=== PATIENT | female | born 1965 | race Caucasian/White ===

== ENCOUNTER 2020-11-27 13:21 | Outpatient (AMBR) | payer MEDICARE, MEDICAID, SELFPAY ==
--- NOTE | 2020-11-13 13:50 | PT.ODAYNRPT ---
PT Outpatient Daily Note Date of Service: 11/13/20 OP Daily Note Visit Reasons: right shoulder pain Outpatient Physical Therapy Treatment Date: 11/13/20 Subjective: Pt's shoulder was popping a lot yesterday when she was trying to move it around. Pt still has a lot of pain. Objective: Please see flow chart for list of ther ex performed Assessment: pain with all exercises; post heat help decrease overall shoulder pain Plan: Continue with PT Length of Time (minutes) of Treatment: 30 Minutes Office Procedures PT Procedures PT Date of Service: 11/13/20 Therapeutic Exercise 30 minutes: Yes
--- NOTE | 2020-11-16 11:43 | PT.ODAYNRPT ---
PT Outpatient Daily Note Date of Service: 11/16/20 OP Daily Note Visit Reasons: right shoulder pain Outpatient Physical Therapy Treatment Date: 11/16/20 Subjective: Pt's shoulder still hurts. Pt mention that she was sore after last treatment session Objective: Please see flow chart for list of ther ex performed Assessment: tolerate exercises with minimal pain Plan: Continue with PT Length of Time (minutes) of Treatment: 30 Minutes Office Procedures PT Procedures PT Date of Service: 11/16/20 Therapeutic Exercise 30 minutes: Yes PT Procedures PT Date of Service: 11/13/20 Therapeutic Exercise 30 minutes: Yes
--- NOTE | 2020-11-21 13:40 | PT.ODAYNRPT ---
PT Outpatient Daily Note Date of Service: 11/21/20 OP Daily Note Visit Reasons: right shoulder pain Outpatient Physical Therapy Treatment Date: 11/21/20 Subjective: Pt's shoulder about the same and continues to have pain under the armpit. Pt stated that all movement still increase pain Objective: Please see flow chart for list of ther ex performed Assessment: tolerate exercises with minimal pain Plan: Continue with PT Length of Time (minutes) of Treatment: 30 Minutes Office Procedures PT Procedures PT Date of Service: 11/16/20 Therapeutic Exercise 30 minutes: Yes PT Procedures PT Date of Service: 11/13/20 Therapeutic Exercise 30 minutes: Yes PT Procedures PT Date of Service: 11/21/20 Therapeutic Exercise 30 minutes: Yes
--- NOTE | 2020-11-23 10:53 | PT.ODAYNRPT ---
PT Outpatient Daily Note Date of Service: 11/23/20 OP Daily Note Visit Reasons: right shoulder pain Outpatient Physical Therapy Treatment Date: 11/23/20 Subjective: Pt mention that her shoulder is the same and continues to hurt. Objective: Please see flow chart for list of ther ex performed Assessment: tolerate exercises with minimal pain; no change in overall pain after therapy session Plan: Continue with PT Length of Time (minutes) of Treatment: 30 Minutes Office Procedures PT Procedures PT Date of Service: 11/16/20 Therapeutic Exercise 30 minutes: Yes PT Procedures PT Date of Service: 11/13/20 Therapeutic Exercise 30 minutes: Yes PT Procedures PT Date of Service: 11/21/20 Therapeutic Exercise 30 minutes: Yes PT Procedures PT Date of Service: 11/23/20 Therapeutic Exercise 30 minutes: Yes
--- NOTE | 2020-11-27 16:05 | PT.ODS1RPT ---
PT OP Progress/Discharge Note Date of Service: 11/27/20 Progress Note/DC Note Progress Note/Discharge Note: DC Note Patient Information Visit Reasons: right shoulder pain Medical Diagnosis: Right Shoulder Pain Treatment Dx #1: Right Shoulder Mobility Deficits Treatment Dx #2: Right Shoulder Weakness Service Continue Service or Discharge: Discharge Discharge Date: 11/27/20 Status Subjective: Pt mention that her shoulder pain (7/10) is about the same since starting physical therapy. Pt continues to have limitation with overhead motions, lifting, chores, self care, cooking, and recreational activities. At this time Pt will like to be release from care and follow up with provider Objective: Right Shoulder AROM Flexion: 30 deg Abduction: 40 deg ER and IR: unable Right Shoulder PROM (pain with all plane) Flexion: 120 deg Abduction: 90 deg External Rotation: 70 deg Internal Rotation: 20 deg Right Shoulder MMTs: grossly 3/5 Right Scapula MMTs: grossly 3/5 Assessment: Pt continues to have shoulder pain with limited ROM leading to difficulty with ADLs, chores, lifting, and overall function. Pt will no longer benefit from physical therapy due to minimal progression towards goals. Pt was not instructed on HEP during her last visit due to exercises increase shoulder pain. Pt has pending appt with provider at the end of month and will follow up, thank you for your referrals. Plan: D/C home with HEP and follow up with provider Office Procedures PT Procedures PT Date of Service: 11/16/20 Therapeutic Exercise 30 minutes: Yes PT Procedures PT Date of Service: 11/13/20 Therapeutic Exercise 30 minutes: Yes PT Procedures PT Date of Service: 11/21/20 Therapeutic Exercise 30 minutes: Yes PT Procedures PT Date of Service: 11/23/20 Therapeutic Exercise 30 minutes: Yes PT Procedures PT Date of Service: 11/27/20 Therapeutic Exercise 30 minutes: Yes
== END 2020-12-12 23:59 | disposition home or self-care (01) ==
PROVIDERS: PCP Physician Assistant; Referring Provider Physician Assistant; Visit Provider Physician Assistant
DX: M25.511 Pain in right shoulder (principal); R53.1 Weakness
CPT/HCPCS: 97110

== ENCOUNTER → 2024-09-12 | Outpatient (CLI) | payer OTHER, MEDICAID, SELFPAY ==
--- NOTE | 2024-09-12 09:00 | XR_ITS ---
Examination: Screening digital mammography, bilateral Computer aided detection 3-D breast Tomosynthesis, bilateral Date and time of exam: September 12, 2024 0903 hours Compared to mammograms dating to January 29, 2016 Indication: Screening Technique: Nonmagnified MLO, CC views of the breasts to been obtained, reconstructed from 3-D Tomosynthesis images. R2 computer aided detection program utilized for evaluation of suspicious masses and/or abnormal calcifications. 3-D Tomosynthesis images obtained. Findings: Scattered areas of fibroglandular density. Benign calcifications. No interval suspicious masses Impression: BI-RADS category II: Benign Findings. Recommend 1 year follow-up mammogram.
== END | disposition home or self-care (01) ==
PROVIDERS: PCP Physician Assistant; Referring Provider Physician Assistant; Visit Provider Physician Assistant
DX: Z12.31 Encounter for screening mammogram for malignant neoplasm of breast (principal); R92.323 Mammographic fibroglandular density, bilateral breasts; R92.1 Mammographic calcification found on diagnostic imaging of breast
CPT/HCPCS: 77063; 77067

== ENCOUNTER → 2025-04-12 | Outpatient (CLI) | payer OTHER, MEDICAID, SELFPAY ==
--- NOTE | 2025-04-12 08:37 | XR_ITS ---
Examination: Bilateral AP wrists single view Right and left oblique, right and left lateral wrist 4 views TECHNIQUE: Bilateral AP wrist single view Right lateral wrist left lateral wrist 2 views Right oblique wrist (oblique wrist 2 views total 5 views Date and time: April 12, 2025 0844 hours INDICATIONS: Bilateral wrist pain years FINDINGS: Bilateral mild to moderate osteoarthritis first carpometacarpal joints No fractures No dislocations No erosive arthritis IMPRESSION: Bilateral mild to moderate osteoarthritis first carpometacarpal joints
--- NOTE | 2025-04-12 08:37 | XR_ITS ---
Examination:: Bilateral AP hands single view, right and left oblique, right and left lateral hands 4 views TECHNIQUE: Bilateral AP hands single view, right and left oblique, right and left lateral hands 4 views, total 5 views Date and time of exam: April 12, 2025 0844 hours INDICATIONS: Bilateral hand pain years Findings: Flexion deformities involving the proximal interphalangeal joints fifth digits bilaterally with moderate osteoarthritis involving the proximal interphalangeal joints fifth digits Osteoarthritis also involving the distal interphalangeal joints second through fifth digits and interphalangeal joints first digits bilaterally No erosive arthritis No fractures IMPRESSION: Osteoarthritis as above
== END | disposition home or self-care (01) ==
PROVIDERS: PCP Physician Assistant; Referring Provider Nurse Practitioner Gerontology; Visit Provider Nurse Practitioner Gerontology
DX: M19.042 Primary osteoarthritis, left hand (principal); M19.041 Primary osteoarthritis, right hand; M18.0 Bilateral primary osteoarthritis of first carpometacarpal joints
CPT/HCPCS: 73110; 73130

== ENCOUNTER 2025-06-02 10:44 | Inpatient (IN) | payer MEDICARE, MEDICAID, SELFPAY ==
[2025-06-02] VITALS (9 sets, daily range): BP systolic 128–153; BP diastolic 71–84; PULSE 86–115; RESP 15–97; TEMP 36.6–37.2; O2SAT 95–97; BMI 21.9; BMI 28.8
--- NOTE | 2025-06-02 11:24 | XR_ITS ---
Examination: CT abdomen and pelvis without contrast. Coronal 3-D reconstructions. Sagittal 2-D reconstructions. Date and time of exam:June 02, 2025, 11:57 AM, comparison November 20, 2021 INDICATIONS: Right-sided flank pain beginning 3 days ago CTDI: vol (mGy): 7.57 DLP: (mGycm): 411 Technique: Axial images of the abdomen have been obtained, 3 mm slice thickness Intravenous contrast material has not been administered. Low dose protocols were performed. One or more of the following dose reduction techniques were used; automated exposure control, adjustment of the mA and/or KV according to patient size, use of iterative reconstruction technique. Findings: 15 mm pulmonary mass left lower lobe 15 mm pulmonary mass right lower lobe Small pericardial effusion No visualized liver or splenic lesion No gallstones No pancreatic or adrenal mass Moderate left renal parenchymal scar formation 4 cm left peripelvic cyst 17 mm lower pole right renal cyst No renal or ureteral calculi, no hydronephrosis No pericecal inflammatory change No bowel obstruction Mild small bowel ileus No diverticulitis Atrophic uterus Contracted urinary bladder Prominent osteopenia Prominent thoracolumbar levoscoliosis with orthopedic stabilization rods Moderate bilateral hip osteoarthritis IMPRESSION: Pulmonary masses in the lower lung zones, consider CT chest without intravenous contrast follow-up Moderate left renal parenchymal scar formation Bilateral renal cysts No renal or ureteral calculi, no hydronephrosis Normal appendix No bowel obstruction Mild small bowel ileus, clinical correlation advised, if early small bowel obstruction is a clinical consideration, recommend 3 way abdominal series follow-up
--- NOTE | 2025-06-02 11:24 | XR_ITS ---
Examination: Ribs, right, with PA chest, 4 views Technique: Chest PA, RIBS AP, RPO, LPO, 4 views Exam date and time: June 02, 2025 11:12 AM INDICATIONS: Fever upper back pain rib pain 3 days Findings: Soft nodular opacities throughout right lung and mild opacity left base consistent with pneumonia Normal heart size Prominent thoracic dextroscoliosis with rotary support rods Old appearing fracture right fifth rib anteriorly No acute rib fractures noted IMPRESSION: Soft nodular opacities throughout the right lung and mild opacity left base most consistent with pneumonia Follow-up chest imaging recommended to document clearing
--- NOTE | 2025-06-02 11:26 | PD.EDRME ---
Rapid Medical Screening Exam RME Arrival date/time: 06/02/25 10:44 60-year-old female with a history of type 2 diabetes, hypertension presents to the emergency room with a chief complaint of right sided flank and rib pain x 3 days I have greeted and performed a focused initial assessment of this patient. A comprehensive ED assessment and evaluation of the patient, analysis of all test results, and completion of the medical decision making process will be conducted by additional ED providers. Chief Complaint: Back Pain/Injury Time Seen by Provider: 06/02/25 11:02 Vital signs: Vital Signs Temperature 98.9 F 06/02/25 11:13 Pulse Rate 115 H 06/02/25 11:13 Respiratory Rate 18 06/02/25 11:13 Blood Pressure 132/71 H 06/02/25 11:13 Pulse Oximetry (%) 95 06/02/25 11:13 Oxygen Delivery Method Room Air 06/02/25 11:13 Vital signs reviewed by provider: Yes
[2025-06-02] MEDS: KETOROLAC INJ 60 MG/2 ML VIAL 30 MG IM (11:31)
--- NOTE | 2025-06-02 12:06 | EKG_ITS ---
[facility] Test Date: 2025-06-02 Pat Name: CLARISSA DOMINGUEZ Department: Room: - Gender: Female Car [employer]: : [id number] Requested By: Wilbur Burgess Order Number: [id number] Reading MD: Wilbur Burgess Measurements Intervals [place] Rate: 108 P: 59 [place]: 164 QRS: -50 QRSD: 100 T: 60 QT: 339 QTc: 456 Interpretive Statements SINUS TACHYCARDIA LEFT ANTERIOR FASCICULAR BLOCK [QRS AXIS <= -45, QR IN I, RS IN II] VOLTAGE CRITERIA FOR LVH [MEETS CRITERIA IN ONE OF: R(aVL), S(V1), R(V5), R(V5/V6)+S(V1)] POSSIBLE ANTERIOR MYOCARDIAL INFARCTION , OF INDETERMINATE AGE [30 ms Q WAVE IN V3/V4, OR R < 0.2 mV IN V4] Compared to ECG 07/14/2020 16:29:07 Left anterior fascicular block now present Myocardial infarct finding now present Sinus rhythm no longer present Left-axis deviation no longer present /store/S0/[id number]/[id number].pdf
[2025-06-02 12:14] LABS: Collection Type, Urine Clean Catch
[2025-06-02 12:29] LABS: Bacteria,Urine Rare; Bilirubin,Urine Negative (Negative); Blood,Urine Negative (Negative); Clarity,Urine Clear (Clear/Hazy); Color,Urine Lt-Yellow (Lt Yel-Yel); Glucose, Urine 4+ (Negative); Ketones,Urine 2+ (Negative); Leukocyte Esterase,Urine Negative (Negative); Nitrite,Urine Negative (Negative); PH,Urine 6.0 (5.0-7.0); Protein,Urine Negative (Neg - Trace); RBC,Urine 12 /hpf (0-3); Specific Gravity,Urine 1.036 (1.001-1.035); Squamous Epithelial Cell,Urine 1 /hpf (0-5); Urobilinogen,Urine Negative mg/dL (0.0-1.0); WBC,Urine 4 /hpf (0-5)
[2025-06-02] MEDS: SODIUM CHLORIDE 0.9% 1000 ML 1,000 ML 999 ML IV (12:32)
--- NOTE | 2025-06-02 12:47 | PD.EDBACK ---
ED Back Injury Pain RME/HPI General Chief Complaint: Back Pain/Injury Stated Complaint: RIGHT FLANK PAIN X4 DAYS Time Seen by Provider: 06/02/25 11:02 Arrival date/time: 06/02/25 10:44 Limitations: no limitations RME / HPI RME / HPI Narrative: 06/02/25 10:44 60-year-old female with a history of type 2 diabetes, hypertension presents to the emergency room with a chief complaint of right sided flank and rib pain x 3 days I have greeted and performed a focused initial assessment of this patient. A comprehensive ED assessment and evaluation of the patient, analysis of all test results, and completion of the medical decision making process will be conducted by additional ED providers. DR. LAI MAIN ED EVALUATION: 60 year old female with history of hypertension and diabetes presents to the ED for evaluation of worsening right back/flank pain with no radiation that began 4 days ago. Described as aching in sensation, rating 9/10 in severity. States she has attempted to rest with no improvement. Additionally complains of dysuria, no urinary frequency/urgency or hematuria. Denies any history of similar pain or kidney stones. Denies fevers, chills, chest pain, cough, shortness of breath, abdominal pain, n/v/d, constipation, or changes in appetite. Related Data Home Medications ?Medication ?Instructions ?Recorded ?Confirmed glimepiride 2 mg tablet 1 tab PO QDAY ##30 06/25/17 12/06/21 lisinopril 20 mg tablet 20 mg PO QDAY #0 tabs 06/25/17 12/06/21 lorazepam 0.5 mg tablet 0.5 mg PO BID #0 tabs 06/25/17 12/06/21 metformin 1,000 mg tablet 1,000 mg PO BID ##60 06/25/17 12/06/21 ranitidine HCl 150 mg tablet 1 tab PO BID ##60 06/25/17 12/06/21 hydrocodone 10 mg-acetaminophen 1 tab PO Q6H PRN Pain, Moderate 01/31/18 12/06/21 325 mg tablet ([place]) warfarin 6 mg tablet 6 mg PO QDAY 01/31/18 12/06/21 gabapentin 100 mg capsule 2 tab PO HS 12/15/18 12/06/21 Previous Rx's ?Medication ?Instructions ?Recorded doxycycline hyclate 100 mg capsule 100 mg PO BID #20 caps 11/29/23 Allergies Allergy/AdvReac Type Severity Reaction Status Date / Time No Known Allergies Allergy Verified 06/02/25 10:46 Review of Systems Review of Systems Systems Reviewed: All systems reviewed, normal except as documented Past Medical History Past Medical History NEUROLOGIC: Positive Neurological Disorders and Migraine CARDIAC: Positive Cardiac Disorders, Hypercholesterolemia and Hypertension RESPIRATORY: Positive Pulmonary Embolism and Sleep Apnea GENITOURINARY: Positive Genitourinary Disorders and Kidney Stones REPRODUCTIVE: Positive Previous Pregnancies MUSCULOSKELETAL: Positive Musculoskeletal Disorders and Scoliosis ENDOCRINE: Positive Endocrine Disorders and Diabetes Mellitus Type 1 PSYCHO/SOCIAL: Positive Depression and Anxiety OTHER HISTORY: Positive Hospitalization Family History FAMILY HISTORY: Positive Family Cardiac Disorders Surgical History SURGICAL: Positive Tubal Ligation and Section Social History SMOKING STATUS: Never smoker SUBSTANCE USE: does not use ED Exam General Limitations: Present no limitations General appearance: Present alert, anxious and other (appears to be in pain ) Head Head exam: Present atraumatic, normocephalic and normal inspection Eye Eye exam: Present normal appearance, PERRL and EOMI ENT ENT exam: Present normal exam, normal oropharynx and mucous membranes moist Neck Neck exam: Present normal inspection, full ROM and trachea midline Chest Chest inspection: Present normal inspection and symmetric chest wall rise Respiratory Respiratory exam: Present normal lung sounds bilaterally Cardiovascular Cardiovascular exam: Present regular rate, normal rhythm and normal heart sounds Abdominal Exam Abdominal exam: Present soft and normal bowel sounds Extremities Exam Extremities exam: Present normal inspection and full ROM Back Exam Back exam: Present full ROM and other (tenderness on the right lateral costal area around T9-T12 area. ) Neurological Exam Neurological exam: Present alert, oriented X3 and CN II-XII intact Psychiatric Psychiatric exam: Present normal affect and normal mood Skin Skin exam: Present warm, dry, intact and normal color Course Quality Measures none Orders Category Date Time Status [employer] Specialist NOW Care 06/02/25 12:06 Completed Continuous Pulse Oximetry NOW Care 06/02/25 12:06 Completed EKG (ED ONLY) *Do not use* NOW Care 06/02/25 12:06 Completed Insert IV NOW Care 06/02/25 12:[address] abdomen pelvis wo con Stat Exams 06/02/25 11:[address] chest wo con Stat Exams 06/02/25 12:46 Completed EKG (ED Only) Stat Exams 06/02/25 12:06 Draft XR ribs RT min 3V w CXR1V Stat Exams 06/02/25 11:24 Completed CBC Stat Lab 06/02/25 12:40 Completed CMP [Comprehensive Metabolic Panel] Stat Lab 06/02/25 12:40 Completed UA [Urinalysis] Stat Lab 06/02/25 12:09 Completed Ketorolac Inj [Toradol Inj] Med 06/02/25 11:25 Discontinued 30 mg IM X1 ONE Morphine* Inj Med 06/02/25 12:47 Discontinued 2 mg IVP X1 ONE Ondansetron Inj [Zofran Inj] Med 06/02/25 12:47 Discontinued 4 mg IVP X1 ONE Sodium Chloride 0.9% 1000 ml [Ns] 1,000 ml Med 06/02/25 12:06 Discontinued IV 999 mls/hr Vital Signs Vital signs: Vital Signs Temperature 98.9 F 06/02/25 11:13 Pulse Rate 115 H 06/02/25 11:13 Respiratory Rate 18 06/02/25 11:13 Blood Pressure 132/71 H 06/02/25 11:13 Pulse Oximetry (%) 95 06/02/25 11:13 Oxygen Delivery Method Room Air 06/02/25 11:13 Pulse ox is 95% on room air which is adequate. Back Pain / Injury MDM Narrative MDM Narrative:: Sisi Huntley am scribing for and in the presence of Dr. Lai. Patient data External records reviewed:: [facility] previous records (I reviewed ED visit on 11/29/2023 ) Clinical information provided by:: patient Social determinants that could affect healthcare access:: none Patient has the following chronic illnesses:: HTN, DM How is presenting disease/condition affected by chronic disease/condition?: uneffected by Evaluation data The following diagnostics were reviewed and interpreted by me:: lab results, radiology exam(s) and EKG tracing(s) (EKG @ 12:19h. Sinus tachycardia, rate 108, LAFB, LVH, poor R-wave progression) Lab and/or radiology exams considered but not ordered:: None Interpretation Summary: Ordering Physician: Lauro Waters Date of Service: 06/02/25 Procedure(s): CT abdomen pelvis wo con Accession Number(s): [id number] cc: Lauro Waters; Eyal James MD~ Examination: CT abdomen and pelvis without contrast. Coronal 3-D reconstructions. Sagittal 2-D reconstructions. Date and time of exam:June 02, 2025, 11:57 AM, comparison November 20, 2021 INDICATIONS: Right-sided flank pain beginning 3 days ago CTDI: vol (mGy): 7.57 DLP: (mGycm): 411 Technique: Axial images of the abdomen have been obtained, 3 mm slice thickness Intravenous contrast material has not been administered. Low dose protocols were performed. One or more of the following dose reduction techniques were used; automated exposure control, adjustment of the mA and/or KV according to patient size, use of iterative reconstruction technique. Findings: 15 mm pulmonary mass left lower lobe 15 mm pulmonary mass right lower lobe Small pericardial effusion No visualized liver or splenic lesion No gallstones No pancreatic or adrenal mass Moderate left renal parenchymal scar formation 4 cm left peripelvic cyst 17 mm lower pole right renal cyst No renal or ureteral calculi, no hydronephrosis No pericecal inflammatory change No bowel obstruction Mild small bowel ileus No diverticulitis Atrophic uterus Contracted urinary bladder Prominent osteopenia Prominent thoracolumbar levoscoliosis with orthopedic stabilization rods Moderate bilateral hip osteoarthritis IMPRESSION: Pulmonary masses in the lower lung zones, consider CT chest without intravenous contrast follow-up Moderate left renal parenchymal scar formation Bilateral renal cysts No renal or ureteral calculi, no hydronephrosis Normal appendix No bowel obstruction Mild small bowel ileus, clinical correlation advised, if early small bowel obstruction is a clinical consideration, recommend 3 way abdominal series follow-up Dictated By: Eyal James MD Signed By: <Electronically signed by Eyal James MD in OV> 06/02/25 1228 Ordering Physician: Lauro Waters Date of Service: 06/02/25 Procedure(s): XR ribs RT min 3V w CXR1V Accession Number(s): [id number] cc: Lauro Waters; Eyal James MD~ Examination: Ribs, right, with PA chest, 4 views Technique: Chest PA, RIBS AP, RPO, LPO, 4 views Exam date and time: June 02, 2025 11:12 AM INDICATIONS: Fever upper back pain rib pain 3 days Findings: Soft nodular opacities throughout right lung and mild opacity left base consistent with pneumonia Normal heart size Prominent thoracic dextroscoliosis with rotary support rods Old appearing fracture right fifth rib anteriorly No acute rib fractures noted IMPRESSION: Soft nodular opacities throughout the right lung and mild opacity left base most consistent with pneumonia Follow-up chest imaging recommended to document clearing Dictated By: Eyal James MD Signed By: <Electronically signed by Eyal James MD in OV> 06/02/25 1141 Ordering Physician: Wilbur Lai MD Date of Service: 06/02/25 Procedure(s): CT chest wo con Accession Number(s): [id number] cc: Wilbur Lai MD; Eyal James MD; Fadumo Baumann PA-C~ Examination: CT chest, without intravenous contrast. Sagittal and coronal 2-D reconstructions. Exam date and time: June 02, 2025, 1255 hours, comparison October 07, 2011 INDICATIONS: Tenderness in the right rib cage today, chest examination today nodular opacities throughout the right lung and at the left base consistent with pneumonia CTDI:vol (mGy) 12.2 DLP: (mGycm) 440 Technique: Multiple 3.0 mm axial sections of the chest to been obtained. Bone and lung density settings are obtained. Sagittal and coronal 2-D reconstructions have been obtained. Low dose protocols were performed. One or more of the following dose reduction techniques were used; automated exposure control, adjustment of the mA and/or KV according to patient size, use of iterative reconstruction technique. Findings: Small left thyroid calcification subcentimeter No thoracic aortic aneurysmal dilatation Pulmonary artery segments are not enlarged. Minimal pericardial effusion 4 mm in thickness anteriorly No paratracheal tracheobronchial or bronchopulmonary adenopathy Soft nodular opacities throughout both lungs, multiple ranging in size from 4 to 16 mm in the right lung and at 2 13 mm in the left lung No visualized liver or splenic lesion No gallstones No pancreatic or adrenal mass IMPRESSION: Multiple soft pulmonary nodules throughout both lungs, differential would include infectious processes including fungal disease, pulmonary nodular metastatic disease not excluded Recommend follow-up chest imaging post antibiotic therapy Dictated By: Eyal James MD Signed By: <Electronically signed by Eyal James MD in OV> 06/02/25 1338 Medications / Prescriptions Medications or Prescriptions considered but not ordered:: None Medication administrations:: Medication Administration History Acetaminophen (Acetaminophen 325 Mg Tablet) 650 mg PO Q6H PRN PRN Reason: Fever >101.5 Stop: 07/02/25 15:27 Hydrocodone Bitart/Acetaminophen (Hydrocodone/Apap 5/325 Tablet) 1 tab PO Q4HR PRN PRN Reason: PAIN SCALE 4-6 (Moderate Stop: 06/07/25 15:27 Dextrose (Dextrose 50%-Water Inj 50 Ml Syringe) 25 ml IV Q15MIN PRN PRN Reason: BG 50-70 responsive npo pt Stop: 07/02/25 15:52 Dextrose (Dextrose 50%-Water Inj 50 Ml Syringe) 50 ml IV Q15MIN PRN PRN Reason: BG <50 OR BG <70 & pt unresponsive Stop: 07/02/25 15:52 Erythromycin (Erythromycin Op Oint 0.5% 1 Gm Packet) 0 gm LEFT EYE QID JOHNATHON Stop: 07/02/25 15:59 Last Admin: 06/02/25 16:48 Dose: 1 gm Documented By: EF Co-signed By: VG Glucagon (Glucagon Inj 1 Mg Vial) 1 mg IM Q15MIN PRN PRN Reason: BG <70, and no IV access Ceftriaxone Sodium/Dextrose (Rocephin/D5w 2gm) 2 gm in 50 mls @ 100 mls/hr IV QDAY@1400 [facility] Stop: 06/10/25 13:59 Lactated Ringer's (Lactated Ringers) 1,000 mls @ 85 mls/hr IV .[id number] [facility] Stop: 06/04/25 04:48 Insulin Human Lispro (Insulin Lispro (Admelog) 1 Unit/0.01 Ml Unit) 0 unit SC [facility]; Protocol Stop: 07/02/25 16:59 Morphine Sulfate (Morphine Sulf Inj 4 Mg/Ml Vial) 2 mg IVP Q4HR PRN PRN Reason: PAIN SCALE 7-10 (Severe Stop: 06/07/25 15:27 Last Admin: 06/02/25 16:48 Dose: 2 mg Documented By: EF Discontinued Medications Sodium Chloride (Ns) 1,000 mls @ 999 mls/hr IV .Q1H1M ONE Stop: 06/02/25 13:06 Last Infusion: 06/02/25 13:58 Dose: Infused Documented By: Admin: 06/02/25 12:32 Dose: 999 mls/hr Documented By: EF Ceftriaxone Sodium 2 gm/ (Sodium Chloride) 50 mls @ 100 mls/hr IV X1 ONE Stop: 06/02/25 16:14 Last Admin: 06/02/25 16:48 Dose: 100 mls/hr Documented By: EF Insulin Human Regular (Insulin Hum Regular 1 Unit/0.01 Ml (Per Unit)) 10 unit IV X1 ONE Stop: 06/02/25 15:29 Insulin Human Regular (Insulin Hum Regular 1 Unit/0.01 Ml (Per Unit)) 4 unit IV X1 ONE Stop: 06/02/25 16:32 Last Admin: 06/02/25 16:49 Dose: 4 unit Documented By: EF Co-signed By: VG Ketorolac Tromethamine (Ketorolac Inj 60 Mg/2 Ml Vial) 30 mg IM X1 ONE Stop: 06/02/25 11:26 Last Admin: 06/02/25 11:31 Dose: 30 mg Documented By: OA Morphine Sulfate (Morphine Sulf Inj 4 Mg/Ml Vial) 2 mg IVP X1 ONE Stop: 06/02/25 12:48 Last Admin: 06/02/25 13:08 Dose: 2 mg Documented By: EF Ondansetron HCl (Ondansetron Inj 2 Mg/Ml Inj 2 Ml) 4 mg IVP X1 ONE; Protocol Stop: 06/02/25 12:48 Last Admin: 06/02/25 13:07 Dose: 4 mg Documented By: EF See above Consultations Consultation(s) initiated? (list below): Yes Consultation #1 (Physician, Specialty, Details): I spoke with hospitalist team A regarding admission. Diagnosis Differential diagnosis back pain/injury: lumbar radiculopathy, renal colic, pyelonephritis and thoracic back pain Most likely diagnosis given after review of the tests above:: Acute pulmonary infiltrates Right flank pain Admission Indicated Admission indicated?: indicated Admission Request Was there a request for admission?: Yes Admission Attestation Admission request attestation: Discussed case with [] from Hospitalist service regarding admission. Discussed patients ED course, exam findings, labs, and radiology results. The Hospitalist [agrees,declines] to accept the patient for admission. Disposition Plan Disposition Plan: Admit Discharge Plan Plan Patient Disposition: Admit Acute Care w/in Hospital Problem List Clinical Impression: Pulmonary infiltrate, Right flank pain
[2025-06-02 12:48] LABS: Basophils # (Auto) 0.0 Thou/mm3 (0.0-0.2); Basophils % (Auto) 0 % (0-2.5); Eosinophils # (Auto) 0.0 Thou/mm3 (0.0-0.5); Eosinophils % (Auto) 0 % (0-10); Hematocrit 36.0 % (36.0-46.0); Hemoglobin 12.1 g/dL (12.0-16.0); Immature Granulocytes Auto 0.05 Thou/mm3 (0.00-0.00); Lymphocytes # (Auto) 1.1 Thou/mm3 (1.0-4.8); Lymphocytes % (Auto) 10 % (10-50); Mean Corpuscular HGB Conc 33.6 g/dl (31.0-37.0); Mean Corpuscular Hemoglobin 29.4 pg (25.0-35.0); Mean Corpuscular Volume 87 fL (80-100); Monocytes # (Auto) 0.6 Thou/mm3 (0.0-0.8); Monocytes % (Auto) 6 % (0-12); Neutrophils # (Auto) 9.4 Thou/mm3 (1.8-7.7); Neutrophils % (Auto) 84 % (37-80); Nucleated Red Blood Cell # 0.00 Thou/mm3 (0.00-0.00); Nucleated Red Blood Cell % 0 /100 WBC (0); Platelet Count 228 Thou/mm3 (140-440); RDW Standard Deviation 39.1 fL (36.4-46.3); Red Blood Count 4.12 Miln/mm3 (4.00-5.20); White Blood Count 11.2 Thou/mm3 (3.6-11.0)
[2025-06-02] MEDS: ONDANSETRON INJ 2 MG/ML INJ 2 ML 4 MG IVP (13:07)
[2025-06-02] MEDS: MORPHINE SULF INJ 4 MG/ML VIAL 2 MG IVP ×2 (13:08→16:48)
[2025-06-02 13:14] LABS: Alanine Aminotransferase < 7 U/L (10-49); Albumin, Serum 4.2 gm/dL (3.4-4.8); Albumin/Globulin Ratio 1.6 (1.2-2.2); Alkaline Phosphatase 70 U/L (46-116); Anion Gap 13 (7-16); Aspartate Amino Transferase 10 U/L (0-34); BUN/Creatinine Ratio 17 Ratio (12-20); Bilirubin,Total 0.7 mg/dL (0.3-1.2); Blood Urea Nitrogen 19 mg/dL (9-23); Calcium 9.5 mg/dL (8.3-10.6); Calcium (Corrected) 9.5 mg/dL (8.5-10.1); Carbon Dioxide 17.7 mMol/L (20.0-31.0); Chloride 104 mMol/L (98-107); Creatinine (Component) 1.1 mg/dL (0.6-1.3); Estimated Creatinine Clearance 42.5 mL/min (>60); Globulin 2.7 gm/dL (2.3-3.5); Glucose 358 mg/dL (74-106); Osmolality,Calculated 286 (275-295); Potassium 4.3 mMol/L (3.4-5.1); Sodium 135 mMol/L (136-145); Total Protein 6.9 gm/dL (5.7-8.2); eGFR 57 See Note
--- NOTE | 2025-06-02 15:27 | ESHP_ITS ---
<Statement entered by Ida Lopes MD - 06/08/25 17:38> I reviewed above note and agree with findings and plans. I have also personally examined the patient with medicine team and went over assessment and plan with medical team including chemist internship and resident physician. <Statement entered by Annie Sarmiento MD - 06/03/25 13:52> Ms. Hernandez is a 60-year-old female with past medical history significant for hypertension, type 2 diabetes, peripheral neuropathy, history of unprovoked PE on warfarin, urinary incontinence who came into the ED with 3 days of dysuria and right flank pain. Patient also noted to have left preseptal cellulitis versus stye appearance but also started around 3 days ago. Patient mentioned that she started injectable insulin last week. Patient denies ever having coccidiomycosis. Patient to be admitted for further management of complicated UTI with pyelonephritis. CT abdomen pelvis just showed pulmonary masses in lower lung zones, moderate left renal parenchymal scar formation and bilateral renal cysts, however no renal or urethral calculi or hydronephrosis. Pending urine cultures, on pain scale, on ceftriaxone 2 g, IV fluids, and will start erythromycin topical treatment for her RA, and consider outpatient workup for her pulmonary nodule biopsy. Will continue with warfarin for unprovoked PE and gabapentin for her peripheral neuropathy. I discussed with and supervised the chemist internship physician who took care of this patient. I personally saw and examined the patient and discussed the assessment and plan with the entire medicine team, including my attending Dr. Lopes, I agree with most of the assessment and plan as documented below Annie Sarmiento M.D. PGY-3 Disclaimer: Despite multiple revisions, due to the dictation software being used, the document bellow may not be free of grammatical errors including phonetic/typographic errors. However, this does not deter from our commitment to providing health care in the patient's best interest in mind. Documentation for date of: 06/02/25 HPI History of Present Illness Chief complaint: Flank pain with dysuria and L eye crusting and erythema History of present illness: Ms. Hernandez is a 60 yo woman with a hx of htn, T2DM (not on insulin), peripheral neuropathy, hx of unprovoked PE 4 years ago on warfarin, stress/urge uriniary incontinence (previously followed by Dr. Simpson outpatient) who presents to the ED with 3 days of dysuria and right flank pain. She states that she had dysuria that then progressed to Right flank pain, that is tender to palpation which prompted her to present. she has had poor po intake over the past 2 days due to minimal appetite. she has had urinary frequency in the past (she has 10 children all birthed vaginally). PMH: unprovoked PE 4 years ago, urge/stress incontinence, t2dm, Sugical hx: umbilical hernia repair MEDS: pending med rec ROS endorses subjective fevers, chills, diaphoresis, diarrhea, headaches, L eye pain, R flank pain , anorexia denies, vision changes, constipation, unintentional weight loss, chestpain, shorntess of breath ED course: VSS, Afebrile, tachycardic to 110s, satting well on RA Dx Labs notable wbc 11.2 Glucose 358s, UA notable for 4+ glucose, Ketones 2+, rare bacteria, 4 wbc. Imaging notable for - CXR: Soft nodular opacities throughout the right lung and mild opacity left base most consistent with pneumonia - CTAP Pulmonary masses in the lower lung zones, consider CT chest without intravenous contrast follow-up Moderate left renal parenchymal scar formation Bilateral renal cysts. No renal or ureteral calculi, no hydronephrosis Normal appendix. No bowel obstruction. Mild small bowel ileus, clinical correlation advised, if early small bowel obstruction is a clinical consideration, recommend 3 way abdominal series follow-up Tx Morpheine 2mg IVP x1 1L NS Ceftriaxone 2gm IV x1 zofran erythromycin Review of Systems Review of Systems Narrative Review of Systems: as per hpi Exam Vital Signs Temp Pulse Resp BP Pulse Ox O2 Del Method 98.9 F 104 H 15 128/74 96 Room Air 06/02/25 11:13 06/02/25 12:35 06/02/25 12:05 06/02/25 12:05 06/02/25 12:05 06/02/25 12:05 Narrative Exam GENERAL: mild distress 2/2 pain, AAO x3, laying slightly on the left side. HEENT: Head AT/ NC. Mucous membranes dry. PERRL. , EOMI, L eye with erythematous upper lid NECK: Supple, no lymphadenopathy, no carotid bruits. CARDIOVASCULAR: RRR. Normal S1/S2, No m/r/g. No pitting edema of bilateral LEs. RESPIRATORY: CTAB. No wheezing, rhonchi, crackles. GASTROINTESTINAL: Abdomen soft, non tender no palpable masses. Bowel sounds present R CVA tenderness to light palpation, no suprapubic tenderness. no rebound no guarding . MUSCULOSKELETAL:? No cyanosis or edema, no visible joint swelling. NEUROLOGICAL: CN II-XII grossly intact. No focal deficits. Sensation intact, symmetric. PSYCHIATRIC: Awake and alert, not agitated, normal mood and affect. SKIN: No obvious rashes, no jaundice, normal turgor. Results: Labs 06/02/25 12:40 06/02/25 12:40 Labs: Short CBC 06/02/25 Range/Units 12:40 WBC 11.2 H (3.6-11.0) Thou/mm3 Hgb 12.1 (12.0-16.0) g/dL Hct 36.0 (36.0-46.0) % Plt Count 228 (140-440) Thou/mm3 BMP 06/02/25 12:40 Sodium 135 L Potassium 4.3 Chloride 104 Carbon Dioxide 17.7 L BUN 19 Creatinine 1.1 Glucose 358 H Calcium 9.5 Liver Function 06/02/25 Range/Units 12:40 Total Bilirubin 0.7 (0.3-1.2) mg/dL AST 10 (0-34) U/L ALT < 7 L (10-49) U/L Alkaline Phosphatase 70 (46-116) U/L Albumin 4.2 (3.4-4.8) gm/dL Urine 06/02/25 Range/Units 12:09 Urine Color Lt-Yellow (Lt Yel-Yel) Urine Clarity Clear (Clear/Hazy) Urine pH 6.0 (5.0-7.0) Ur Specific [place] 1.036 H (1.001-1.035) Urine Protein Negative (Neg - Trace) Urine Glucose (UA) 4+ A (Negative) Quality Measures Quality Measures VTE prophylaxis Medications Home Medications and Allergies Home Medications ?Medication ?Instructions ?Recorded ?Confirmed ?Type glimepiride 2 mg tablet 1 tab PO QDAY ##30 06/25/17 12/06/21 History lisinopril 20 mg tablet 20 mg PO QDAY #0 tabs 12/06/21 History lorazepam 0.5 mg tablet 0.5 mg PO BID #0 tabs 12/06/21 History metformin 1,000 mg tablet 1,000 mg PO BID ##60 7 12/06/21 History ranitidine HCl 150 mg tablet 1 tab PO BID ##60 7 12/06/21 History hydrocodone 10 mg-acetaminophen 1 tab PO Q6H PRN Pain, Moderate 01/31/18 12/06/21 History 325 mg tablet ([place]) warfarin 6 mg tablet 6 mg PO QDAY 01/31/18 History gabapentin 100 mg capsule 2 tab PO HS 12/15/18 2 History Allergies Allergy/AdvReac Type Severity Reaction Status Date / Time No Known Allergies Allergy Verified 06/02/25 10:46 Visit Medications Discontinued Medications Sodium Chloride (Ns) 1,000 mls @ 999 mls/hr IV .Q1H1M ONE Stop: 06/02/25 13:06 Last Infusion: 06/02/25 13:58 Dose: Infused Ketorolac Tromethamine (Ketorolac Inj 60 Mg/2 Ml Vial) 30 mg IM X1 ONE Stop: 06/02/25 11:26 Last Admin: 06/02/25 11:31 Dose: 30 mg Morphine Sulfate (Morphine Sulf Inj 4 Mg/Ml Vial) 2 mg IVP X1 ONE Stop: 06/02/25 12:48 Last Admin: 06/02/25 13:08 Dose: 2 mg Ondansetron HCl (Ondansetron Inj 2 Mg/Ml Inj 2 Ml) 4 mg IVP X1 ONE; Protocol Stop: 06/02/25 12:48 Last Admin: 06/02/25 13:07 Dose: 4 mg Assessment & Plan Plan Ms. Hernandez is a 60 yo woman with a hx of htn, T2DM (not on insulin), peripheral neuropathy, hx of unprovoked PE 4 years ago on warfarin, stress/urge uriniary incontinence (previously followed by Dr. Simpson outpatient) who presents to the ED with 3 days of dysuria and right flank pain concerning for pyelonephritis, admitted for complicated UTI with pyelonephritis. Complicated UTI with Pyelonephritis Dx - CTAP with Pulmonary masses in the lower lung zones, consider CT chest without intravenous contrast follow-up Moderate left renal parenchymal scar formation Bilateral renal cysts. No renal or ureteral calculi, no hydronephrosis Normal appendix. - wbc 11 - pending urine cultures Tx - Pain: apap (1-3), [place] ( 4-6 ), morpheine 2 mg IV q4hr prn (7-10) - Ceftriaxone 2 mg IV (06/02- - IV fluids LR 85cc/hr - encourage PO intake L preseptal cellulitis vs stye EOMI, no acute vision changes - CTM - erythromycin topical QID T2DM home meds, metformin 1000 bid, and pt is not taking glimepiride 1 tab - A1c pending - ISS - carb consistent diet Pulmonary nodules CTAP with Pulmonary masses in the lower lung zones, consider CT chest without intravenous contrast follow-up - outpatient pulmonary nodule biopsy Hx of unprovoked PE - warfarin, pending med rec - coagulation panel pending Peripheral Neuropathy - gabapentin 2 tab qhs HTN - lisinopril 20 mg po qd Mixed Urinary Incontinence pt previously followed with Dr. Simpson has had 10 vaginal deliveries - outpatient urology follow up Dispo: on observation, on iv abx, Diet: carb consistent Bowel Reg: senna/docusate prn VTE ppx: on warfarin GI ppx: protonix 40 po qd Code status: FULL Plan discussed with Dr Sarmiento, and Dr. Moses Yanez MD PGY1
[2025-06-02] MEDS: cefTRIAXone 2 GM in SODIUM CHLORIDE 0.9% (Popper) 50 ML IV (16:48)
[2025-06-02] MEDS: Erythromycin Op Oint 0.5% 1 GM PACKET LEFT EYE ×2 (16:48→20:44)
[2025-06-02] MEDS: INSULIN HUM REGULAR 1 UNIT/0.01 ML (PER UNIT) 4 UNIT IV (16:49)
[2025-06-02] MEDS: INSULIN LISPRO (AdmeLOG) 1 UNIT/0.01 ML UNIT SC (17:49)
[2025-06-02] MEDS: RINGERS LACTATED 1000 ML 1,000 ML 85 ML IV (18:04)
[2025-06-02] MEDS: HYDROcodone/APAP 5/325 TABLET 1 TAB PO (23:52)
[2025-06-03] VITALS (13 sets, daily range): BP systolic 113–152; BP diastolic 66–93; PULSE 89–121; RESP 18–202; TEMP 36.4–38.8; O2SAT 92–101; BMI 28.9
[2025-06-03] MEDS: RINGERS LACTATED 1000 ML 1,000 ML 85 ML IV ×2 (04:44→17:30)
[2025-06-03] MEDS: Erythromycin Op Oint 0.5% 1 GM PACKET LEFT EYE ×4 (05:15→20:20)
[2025-06-03 05:39] LABS: Basophils # (Auto) 0.0 Thou/mm3 (0.0-0.2); Basophils % (Auto) 0 % (0-2.5); Eosinophils # (Auto) 0.0 Thou/mm3 (0.0-0.5); Eosinophils % (Auto) 0 % (0-10); Hematocrit 31.8 % (36.0-46.0); Hemoglobin 10.5 g/dL (12.0-16.0); Immature Granulocytes Auto 0.03 Thou/mm3 (0.00-0.00); Lymphocytes # (Auto) 1.2 Thou/mm3 (1.0-4.8); Lymphocytes % (Auto) 14 % (10-50); Mean Corpuscular HGB Conc 33.0 g/dl (31.0-37.0); Mean Corpuscular Hemoglobin 29.3 pg (25.0-35.0); Mean Corpuscular Volume 89 fL (80-100); Monocytes # (Auto) 0.7 Thou/mm3 (0.0-0.8); Monocytes % (Auto) 8 % (0-12); Neutrophils # (Auto) 6.6 Thou/mm3 (1.8-7.7); Neutrophils % (Auto) 77 % (37-80); Nucleated Red Blood Cell # 0.00 Thou/mm3 (0.00-0.00); Nucleated Red Blood Cell % 0 /100 WBC (0); Platelet Count 219 Thou/mm3 (140-440); RDW Standard Deviation 38.8 fL (36.4-46.3); Red Blood Count 3.58 Miln/mm3 (4.00-5.20); White Blood Count 8.6 Thou/mm3 (3.6-11.0)
[2025-06-03 05:41] LABS: INR 1.0 (0.9-1.3); Prothrombin Time 10.9 Seconds (9.0-12.2)
[2025-06-03 06:14] LABS: Alanine Aminotransferase < 7 U/L (10-49); Albumin, Serum 3.5 gm/dL (3.4-4.8); Albumin/Globulin Ratio 1.5 (1.2-2.2); Alkaline Phosphatase 59 U/L (46-116); Anion Gap 11 (7-16); Aspartate Amino Transferase < 8 U/L (0-34); BUN/Creatinine Ratio 19 Ratio (12-20); Bilirubin,Total 0.4 mg/dL (0.3-1.2); Blood Urea Nitrogen 15 mg/dL (9-23); Calcium 8.8 mg/dL (8.3-10.6); Calcium (Corrected) 9.2 mg/dL (8.5-10.1); Carbon Dioxide 21.7 mMol/L (20.0-31.0); Chloride 106 mMol/L (98-107); Creatinine (Component) 0.8 mg/dL (0.6-1.3); Estimated Creatinine Clearance 68.3 mL/min (>60); Globulin 2.4 gm/dL (2.3-3.5); Glucose 183 mg/dL (74-106); Magnesium 2.1 mg/dL (1.6-2.6); Osmolality,Calculated 283 (275-295); Phosphorous 2.5 mg/dL (2.4-5.1); Potassium 4.5 mMol/L (3.4-5.1); Sodium 139 mMol/L (136-145); Total Protein 5.9 gm/dL (5.7-8.2); eGFR > 60 See Note
[2025-06-03 06:25] LABS: Glucose Estimated Average 355 mg/dL (80-131); Hemoglobin A1C > 14.0 % Hgb (4.8-6.0)
--- NOTE | 2025-06-03 07:52 | ESPR_ITS ---
<Statement entered by Ida Lopes MD - 06/08/25 17:39> I reviewed above note and agree with findings and plans. I have also personally examined the patient with medicine team and went over assessment and plan with medical team including compliance intern and resident physician. Documentation for date of: 06/03/25 Subjective Subjective Interval history: Ms. Hernandez is a 60 yo woman with a hx of htn, T2DM (not on insulin), peripheral neuropathy, hx of unprovoked PE 4 years ago on apixaban 2.5mg BID, stress/urge uriniary incontinence (previously followed by Dr. Simpson outpatient) who presents to the ED with 3 days of dysuria and right flank pain concerning for pyelonephritis, admitted for complicated UTI with pyelonephritis. 06/03/2025: Patient seen and examined at bedside she appears to be in moderate distress secondary to pain. She endorses right flank pain. Overnight she had low-grade fever to 100.7 despite being on 2 g ceftriaxone IV. Despite UA being bland high suspicion for UTI and Juan given patient reported symptoms of 3 days of dysuria and is very tender CVA on the right. Patient noted to have pulmonary nodules and today has productive cough, pending cocci serologies. A1c greater than 14 demonstrates poor control of diabetes will start on 10 units long-acting insulin tonight and continue with sliding scale insulin. Per patient reports she has not been taking home short acting insulin secondary to GI upset. For her left eye the orbital versus stye she continues on erythromycin 4 times daily and warm compresses 3 times daily. Patient was noted to have left submental mobile and nontender lymphadenopathy, SPECT that it is secondary to left eye edema however will follow-up with ultrasound head and neck. Exam Vital Signs Temp Pulse Resp BP Pulse Ox O2 Del Method 99.3 F 101 H 19 126/93 H 93 L Room Air 06/03/25 04:00 06/03/25 06:31 06/03/25 06:31 06/03/25 04:00 06/03/25 04:00 06/02/25 17:50 Narrative Exam GENERAL: mild distress 2/2 pain, AAO x3, laying slightly on the left side. HEENT: Head AT/ NC. Mucous membranes dry. PERRL. , EOMI, L eye with erythematous upper lid, crusting and blood noted, NECK: Supple, Left submental lymphadenopathy, mobile and nontender to palpation. , no carotid bruits. CARDIOVASCULAR: sinus tachycardia. Normal S1/S2, No m/r/g. No pitting edema of bilateral LEs. RESPIRATORY: scattered crackles bilaterally, tachypnic. intermittent productive cough, with yellow sputum noted. GASTROINTESTINAL: Abdomen soft, c/o epigastric tenderness no palpable masses. Bowel sounds present R CVA tenderness to light palpation, no suprapubic tenderness. no rebound no guarding . MUSCULOSKELETAL:? No cyanosis or edema, no visible joint swelling. NEUROLOGICAL: CN II-XII grossly intact. No focal deficits. Sensation intact, symmetric. PSYCHIATRIC: Awake and alert, not agitated, normal mood and affect. SKIN: No obvious rashes, no jaundice, normal turgor. Objective Labs 06/03/25 04:55 06/03/25 04:55 Labs: Laboratory Results - last 24 hr 06/02/25 06/02/25 06/03/25 12:09 12:40 04:55 WBC 11.2 H 8.6 RBC 4.12 3.58 L Hgb 12.1 10.5 L Hct 36.0 31.8 L MCV 87 89 MCH 29.4 29.3 MCHC 33.6 33.0 RDW Std Deviation 39.1 38.8 Plt Count 228 219 Neut % (Auto) 84 H 77 Lymph % (Auto) 10 14 [place] % (Auto) 6 8 Eos % (Auto) 0 0 Baso % (Auto) 0 0 Neut # (Auto) 9.4 H 6.6 Lymph # (Auto) 1.1 1.2 [place] # (Auto) 0.6 0.7 Eos # (Auto) 0.0 0.0 Baso # (Auto) 0.0 0.0 Immature Gran # (Auto) 0.05 H 0.03 H Absolute Nucleated RBC 0.00 0.00 Immature Gran % 0 0 Nucleated RBC % 0 0 PT 10.9 INR 1.0 Sodium 135 L 139 Potassium 4.3 4.5 Chloride 104 106 Carbon Dioxide 17.7 L 21.7 Anion Gap 13 11 BUN 19 15 Creatinine 1.1 0.8 Estim Creat Clear Calc 42.5 L 68.3 eGFR 57 L > 60 BUN/Creatinine Ratio 17 19 Glucose [address] Glu mg/dL 355 H Hemoglobin A1c > 14.0 H Calculated Osmolality 286 283 Calcium 9.5 8.8 Corrected Calcium 9.5 9.2 Phosphorus 2.5 Magnesium 2.1 Total Bilirubin 0.7 0.4 AST 10 < 8 ALT < 7 L < 7 L Alkaline Phosphatase 70 59 Total Protein 6.9 5.9 Albumin 4.2 3.5 D Globulin 2.7 2.4 Albumin/Globulin Ratio 1.6 1.5 Ur Collection Type Clean Catch Urine Color Lt-Yellow Urine Clarity Clear Urine pH 6.0 Ur Specific [place] 1.036 H Urine Protein Negative Urine Glucose (UA) 4+ A Urine Ketones 2+ A Urine Blood Negative Urine Nitrite Negative Urine Bilirubin Negative Urine Urobilinogen (Auto) Negative Ur Leukocyte Esterase Negative Urine RBC 12 H Urine WBC 4 Ur Squamous Epith Cells 1 Urine Bacteria Rare Quality Measures Quality Measures VTE prophylaxis Assessment & Plan Assessment Current Active Medications: Generic Name Dose Route Start Last Admin Trade Name Freq PRN Reason Stop Dose Admin Acetaminophen 650 mg 06/02/25 15:28 Acetaminophen 325 Mg Tablet PO 07/02/25 15:27 Q6H PRN Fever >101.5 Hydrocodone Bitart/Acetaminophen 1 tab 06/02/25 15:28 06/02/25 23:52 Hydrocodone/Apap 5/325 Tablet PO 06/07/25 15:27 1 tab Q4HR PRN Administration PAIN SCALE 4-6 (Moderate Dextrose 25 ml 06/02/25 15:53 Dextrose 50%-Water Inj 50 Ml Syringe IV 07/02/25 15:52 Q15MIN PRN BG 50-70 responsive npo pt Dextrose 50 ml 06/02/25 15:53 Dextrose 50%-Water Inj 50 Ml Syringe IV 07/02/25 15:52 Q15MIN PRN BG <50 OR BG <70 & pt unresponsive Erythromycin 0 gm 06/02/25 16:00 06/03/25 05:15 Erythromycin Op Oint 0.5% 1 Gm Packet LEFT EYE 07/02/25 15:59 1 gm QID JOHNATHON Administration Glucagon 1 mg 06/02/25 15:53 Glucagon Inj 1 Mg Vial IM Q15MIN PRN BG <70, and no IV access Ceftriaxone Sodium/Dextrose 2 gm in 50 mls @ 100 mls/hr 06/03/25 14:00 Rocephin/D5w 2gm IV 06/10/25 13:59 QDAY@1400 JOHNATHON Lactated Ringer's 1,000 mls @ 85 mls/hr 06/02/25 17:31 06/03/25 04:44 Lactated Ringers IV 06/04/25 04:48 85 mls/hr .[id number] JOHNATHON Administration Insulin Human Lispro 0 unit 06/02/25 17:00 06/02/25 17:49 Insulin Lispro (Admelog) 1 Unit/0.01 Ml Unit SC 07/02/25 16:59 1 unit AC JOHNATHON Administration Protocol Morphine Sulfate 2 mg 06/02/25 15:28 06/02/25 16:48 Morphine Sulf Inj 4 Mg/Ml Vial IVP 06/07/25 15:27 2 mg Q4HR PRN Administration PAIN SCALE 7-10 (Severe Pantoprazole Sodium 40 mg 06/03/25 09:00 Pantoprazole 40 Mg Tablet PO 07/03/25 08:59 QDAY JOHNATHON Sennosides 1 tab 06/02/25 17:40 Senna/Docusate Sod 1 Tab Tablet PO 07/02/25 17:39 QDAY PRN CONSTIPATION Protocol Plan Ms. Hernandez is a 60 yo woman with a hx of htn, Insulin dependent t2dm- poorly controlled a1c >15 (recently started on insulin outpatient), peripheral neuropathy, hx of unprovoked PE 4 years ago on warfarin, stress/urge uriniary incontinence (previously followed by Dr. Simpson outpatient) who presents to the ED with 3 days of dysuria and right flank pain concerning for pyelonephritis, admitted for complicated UTI with pyelonephritis and found to have pulmonary nodules, pending cocci serology. Complicated UTI with Pyelonephritis pt had low grade fever overnight and dysuria and severe R flank pain. Dx - CTAP with Pulmonary masses in the lower lung zones, consider CT chest without intravenous contrast follow-up Moderate left renal parenchymal scar formation Bilateral renal cysts. No renal or ureteral calculi, no hydronephrosis Normal appendix. - Leukocytosis downtrending - pending urine cultures Tx - Pain: apap (1-3), [place] ( 4-6 ), morpheine 2 mg IV q4hr prn (7-10) - Ceftriaxone 2 mg IV (06/02- - IV fluids LR 85cc/hr - encourage PO intake Productive cough c/f CAP Pulmonary nodules CTAP with Pulmonary masses in the lower lung zones, consider CT chest without intravenous contrast follow-up pt has new productive cough with yellow sputum, despite ct chest without lobar pneumonia findings. - consider adding abx for gram positive coverage for possible pna if pt spikes fevers while on Ceftriaxone. - pending cocci serology - consider outpatient biopsy T2DM - poorly controlled home meds, 25 long acting qd, not taking 5 units short acting with meals 2/2 gi upset, ?Farxiga 10 mg qam. - A1c >14 - ISS - degludec 10U qhs - carb consistent diet L preseptal cellulitis vs stye L submental lymphadenopathy EOMI, no acute vision changes on exam noted to have mobile and non tender lymph node, suspect that it is enlarged 2/2 L eye infection - CTM - erythromycin topical QID - warm compresses TID - pending US head and neck Hx of unprovoked PE - apixaban 2.5 bid - coagulation panel wnl Peripheral Neuropathy - gabapentin 2 tab qhs HTN - lisinopril 20 mg po qd HLD - atorvastatin 40 qhs Mixed Urinary Incontinence pt previously followed with Dr. Simpson has had 10 vaginal deliveries - outpatient urology follow up Dispo: on observation, on iv abx, Diet: carb consistent Bowel Reg: senna/docusate prn VTE ppx: on apixaban 2.5 bid GI ppx: protonix 40 po qd Code status: FULL Plan discussed with Dr Sarmiento, and Dr. Moses Yanez MD PGY1
[2025-06-03] MEDS: INSULIN LISPRO (AdmeLOG) 1 UNIT/0.01 ML UNIT SC ×3 (08:16→17:33)
[2025-06-03] MEDS: PANTOPRAZOLE 40 MG TABLET PO (08:16)
[2025-06-03] MEDS: MORPHINE SULF INJ 4 MG/ML VIAL 2 MG IVP (09:13)
[2025-06-03] MEDS: GABAPENTIN 100 MG CAPSULE 300 MG PO (10:08)
--- NOTE | 2025-06-03 11:24 | PC.SS ---
Tester Wafer Substrate (JUNG) Apoorva met with the patient at the bedside to complete the initial assessment and discuss the discharge plan. Per the chart review, the patient presented to the emergency department with c/o flank pain with dysuria, and left eye crusting and erythema. SW met with the patient at the bedside. SW introduced self, role, and the reason for the consult. Patient agreed to engage in the assessment. Patient is alert and oriented to person, place, time, and situation. Patient is Maura Hernandez, 60 y/o, , Mongolian-speaking female residing at [address] [place] [address]. Patient named her son, Vincenzo Sanchez, , as her surrogate medical decision maker. Patient reports being independent and able to attend to her ADLs. Patient reports having a C-Pap at home. Patient is receiving SSI benefits. Patient's PCP is Dr. Fadumo Baumann. The patient's discharge plan is home, and the family will provide transportation. Per HUNTER Bae, the patient is A/O X4; on IV abx and pain control Surrogate medical decision maker: Son, Vincenzo Sanchez, Discharge plan: Home
--- NOTE | 2025-06-03 12:01 | XR_ITS ---
Examination: Ultrasound soft tissue neck Technique: Grayscale sonographic images soft tissue neck Indications: Palpable lymphadenopathy and submental region today. Date and time: June 03, 2025, 1250 hrs. Findings: 16 x 7 x 13 mm lymph node in the upper left neck Impression: 16 x 7 x 13 mm lymph node in the upper soft tissue left neck, clinical correlation advised
[2025-06-03 12:33] LABS: Amylase 27 U/L (30-118)
[2025-06-03] MEDS: cefTRIAXone/D5w 2gm 2 GM/50 ML BAG IV (13:35)
[2025-06-03 13:46] LABS: Cocci Serology, IgM Negative (Negative)
[2025-06-03] MEDS: HYDROcodone/APAP 5/325 TABLET 1 TAB PO (15:59)
[2025-06-03] MEDS: ACETAMINOPHEN 325 MG TABLET 650 MG PO (17:29)
[2025-06-03] MEDS: INSULIN DEGLUDEC 5 UNIT/0.05 ML (PER 5 UNITS) 10 UNIT SC (20:18)
[2025-06-03] MEDS: APIXABAN 2.5 MG TABLET PO (20:20)
[2025-06-03] MEDS: PIPER/TAZO INJ 3.375 GM in SODIUM CHLORIDE 0.9% (POP) 100 ML IV (21:45)
[2025-06-04] VITALS (7 sets, daily range): BP systolic 115–145; BP diastolic 68–87; PULSE 71–108; RESP 16–97; TEMP 36.3–36.7; O2SAT 93–95
[2025-06-04] MEDS: Erythromycin Op Oint 0.5% 1 GM PACKET LEFT EYE ×4 (05:12→21:28)
[2025-06-04] MEDS: PIPER/TAZO INJ 3.375 GM in SODIUM CHLORIDE 0.9% (POP) 100 ML IV ×3 (05:13→21:31)
[2025-06-04 05:31] LABS: Basophils # (Auto) 0.0 Thou/mm3 (0.0-0.2); Basophils % (Auto) 0 % (0-2.5); Eosinophils # (Auto) 0.0 Thou/mm3 (0.0-0.5); Eosinophils % (Auto) 0 % (0-10); Hematocrit 30.6 % (36.0-46.0); Hemoglobin 10.3 g/dL (12.0-16.0); Immature Granulocytes Auto 0.05 Thou/mm3 (0.00-0.00); Lymphocytes # (Auto) 1.1 Thou/mm3 (1.0-4.8); Lymphocytes % (Auto) 12 % (10-50); Mean Corpuscular HGB Conc 33.7 g/dl (31.0-37.0); Mean Corpuscular Hemoglobin 29.4 pg (25.0-35.0); Mean Corpuscular Volume 87 fL (80-100); Monocytes # (Auto) 0.8 Thou/mm3 (0.0-0.8); Monocytes % (Auto) 9 % (0-12); Neutrophils # (Auto) 7.1 Thou/mm3 (1.8-7.7); Neutrophils % (Auto) 78 % (37-80); Nucleated Red Blood Cell # 0.00 Thou/mm3 (0.00-0.00); Nucleated Red Blood Cell % 0 /100 WBC (0); Platelet Count 230 Thou/mm3 (140-440); RDW Standard Deviation 38.2 fL (36.4-46.3); Red Blood Count 3.50 Miln/mm3 (4.00-5.20); White Blood Count 9.0 Thou/mm3 (3.6-11.0)
[2025-06-04 06:21] LABS: Alanine Aminotransferase < 7 U/L (10-49); Albumin, Serum 3.5 gm/dL (3.4-4.8); Albumin/Globulin Ratio 1.5 (1.2-2.2); Alkaline Phosphatase 56 U/L (46-116); Anion Gap 10 (7-16); Aspartate Amino Transferase < 8 U/L (0-34); BUN/Creatinine Ratio 16 Ratio (12-20); Bilirubin,Total 0.4 mg/dL (0.3-1.2); Blood Urea Nitrogen 11 mg/dL (9-23); Calcium 8.9 mg/dL (8.3-10.6); Calcium (Corrected) 9.3 mg/dL (8.5-10.1); Carbon Dioxide 22.7 mMol/L (20.0-31.0); Chloride 105 mMol/L (98-107); Creatinine (Component) 0.7 mg/dL (0.6-1.3); Estimated Creatinine Clearance 76.2 mL/min (>60); Globulin 2.4 gm/dL (2.3-3.5); Glucose 186 mg/dL (74-106); Magnesium 1.7 mg/dL (1.6-2.6); Osmolality,Calculated 280 (275-295); Phosphorous 1.7 mg/dL (2.4-5.1); Potassium 4.2 mMol/L (3.4-5.1); Sodium 138 mMol/L (136-145); Total Protein 5.9 gm/dL (5.7-8.2); eGFR > 60 See Note
[2025-06-04] MEDS: INSULIN LISPRO (AdmeLOG) 1 UNIT/0.01 ML UNIT SC ×3 (07:34→16:48)
--- NOTE | 2025-06-04 07:35 | ESPR_ITS ---
<Statement entered by Ida Lopes MD - 06/08/25 17:39> I reviewed above note and agree with findings and plans. I have also personally examined the patient with medicine team and went over assessment and plan with medical team including data analysis intern and resident physician. <Statement entered by Tootie Patel MD - 06/04/25 16:23> Patient examined at bedside. Overnight patient had fever and antibiotic regimen changed from ceftriaxone to IV Zosyn for treatment of complicated UTI versus pyelonephritis and CAP. Will continue to monitor vitals and patient's symptoms. Denies worsening dysuria, resolving CVA tenderness. States that she is feeling better and able to tolerate some food. Urine cultures on admission were negative. Improvement noted of stye on left eyelid with decreased swelling. U/s of neck showed 16 x 7 x 13 mm lymph node in the upper soft tissue left neck. Likely due to lymph drainage from eye infection. Uptitrate long actining insulin to optimize blood sugars and continue SSI. The patient's management plan was discussed with my attending physician Dr. Lopes. Tootie Patel, PGY-2 Documentation for date of: 06/04/25 Subjective Subjective Interval history: Ms. Hernandez is a 60 yo woman with a hx of htn, T2DM (not on insulin), peripheral neuropathy, hx of unprovoked PE 4 years ago on apixaban 2.5mg BID, stress/urge uriniary incontinence (previously followed by Dr. Simpson outpatient) who presents to the ED with 3 days of dysuria and right flank pain concerning for pyelonephritis, admitted for complicated UTI with pyelonephritis. 06/03/2025: Patient seen and examined at bedside she appears to be in moderate distress secondary to pain. She endorses right flank pain. Overnight she had low-grade fever to 100.7 despite being on 2 g ceftriaxone IV. Despite UA being bland high suspicion for UTI and Juan given patient reported symptoms of 3 days of dysuria and is very tender CVA on the right. Patient noted to have pulmonary nodules and today has productive cough, pending cocci serologies. A1c greater than 14 demonstrates poor control of diabetes will start on 10 units long-acting insulin tonight and continue with sliding scale insulin. Per patient reports she has not been taking home short acting insulin secondary to GI upset. For her left eye the orbital versus stye she continues on erythromycin 4 times daily and warm compresses 3 times daily. Patient was noted to have left submental mobile and nontender lymphadenopathy, SPECT that it is secondary to left eye edema however will follow-up with ultrasound head and neck. 06/04/2025: patient seen and examined at bedside. she appears much more comfortable, her eye cellulitis vs stye is much improved with markedly less swelling of the lid noted and less crusting and drainage. US neck showed lymphnode of the L neck. likely correllates to L eye inflammation and infection resolving with topical erythromycin qid and warm compresses TID. Patient overnight spiked fever while on ceftrixone 2 grams, so abx were changed to zosyn q8hr. pt reports marked improvement in her R flank pain, and diminished dysuria. Ucx with now growth to date and blood cultures ngtd @ 24 hours. Increased her degludec from 10 to 13 Units qhs. Exam Vital Signs Temp Pulse Resp BP Pulse Ox O2 Del Method 98.0 F 108 H 18 134/72 H 95 Room Air 06/04/25 04:00 06/04/25 04:00 06/04/25 04:00 06/04/25 04:00 06/04/25 04:00 06/04/25 04:00 Narrative Exam GENERAL: mild distress 2/2 pain, AAO x3, laying slightly on the left side. HEENT: Head AT/ NC. Mucous membranes moist. PERRL. , EOMI, L eye much improved, decreased errythema and swelling NECK: Supple, Left submental lymphadenopathy decresed in size, mobile and nontender to palpation., no carotid bruits. CARDIOVASCULAR: sinus tachycardia. Normal S1/S2, No m/r/g. No pitting edema of bilateral LEs. RESPIRATORY: Lungs CTAB intermittent productive cough, with yellow sputum noted. GASTROINTESTINAL: Abdomen soft, c/o epigastric tenderness no palpable masses. Bowel sounds present R CVA is Nontender to palpation, no suprapubic tenderness. no rebound no guarding . MUSCULOSKELETAL:? No cyanosis or edema, no visible joint swelling. NEUROLOGICAL: CN II-XII grossly intact. No focal deficits. Sensation intact, symmetric. PSYCHIATRIC: Awake and alert, not agitated, normal mood and affect. SKIN: No obvious rashes, no jaundice, normal turgor. Objective Labs 06/04/25 04:51 06/04/25 04:51 Labs: Laboratory Results - last 24 hr 06/03/25 06/04/25 10:57 04:51 WBC 9.0 RBC 3.50 L Hgb 10.3 L Hct 30.6 L MCV 87 MCH 29.4 MCHC 33.7 RDW Std Deviation 38.2 Plt Count 230 Neut % (Auto) 78 Lymph % (Auto) 12 [place] % (Auto) 9 Eos % (Auto) 0 Baso % (Auto) 0 Neut # (Auto) 7.1 Lymph # (Auto) 1.1 [place] # (Auto) 0.8 Eos # (Auto) 0.0 Baso # (Auto) 0.0 Immature Gran # (Auto) 0.05 H Absolute Nucleated RBC 0.00 Immature Gran % 1 H Nucleated RBC % 0 Sodium 138 Potassium 4.2 Chloride 105 Carbon Dioxide 22.7 Anion Gap 10 BUN 11 Creatinine 0.7 Estim Creat Clear Calc 76.2 eGFR > 60 BUN/Creatinine Ratio 16 Glucose 186 H Calculated Osmolality 280 Calcium 8.9 Corrected Calcium 9.3 Phosphorus 1.7 L Magnesium 1.7 Total Bilirubin 0.4 AST < 8 ALT < 7 L Alkaline Phosphatase 56 Total Protein 5.9 Albumin 3.5 Globulin 2.4 Albumin/Globulin Ratio 1.5 Amylase 27 L Coccidioides IgM Ab Negative Quality Measures Quality Measures VTE prophylaxis Assessment & Plan Assessment Current Active Medications: Generic Name Dose Route Start Last Admin Trade Name Freq PRN Reason Stop Dose Admin Acetaminophen 650 mg 06/02/25 15:28 06/03/25 17:29 Acetaminophen 325 Mg Tablet PO 07/02/25 15:27 650 mg Q6H PRN Administration Fever >101.5 Hydrocodone Bitart/Acetaminophen 1 tab 06/02/25 15:28 06/03/25 15:59 Hydrocodone/Apap 5/325 Tablet PO 06/07/25 15:27 1 tab Q4HR PRN Administration PAIN SCALE 4-6 (Moderate Apixaban 2.5 mg 06/03/25 21:00 06/03/25 20:20 Apixaban 2.5 Mg Tablet PO 06/24/25 20:59 2.5 mg BID JOHNATHON Administration Atorvastatin Calcium 40 mg 06/04/25 21:00 Atorvastatin Calcium 20 Mg Tablet PO 07/04/25 20:59 HS JOHNATHON Dextrose 25 ml 06/02/25 15:53 Dextrose 50%-Water Inj 50 Ml Syringe IV 07/02/25 15:52 Q15MIN PRN BG 50-70 responsive npo pt Dextrose 50 ml 06/02/25 15:53 Dextrose 50%-Water Inj 50 Ml Syringe IV 07/02/25 15:52 Q15MIN PRN BG <50 OR BG <70 & pt unresponsive Erythromycin 0 gm 06/02/25 16:00 06/04/25 05:12 Erythromycin Op Oint 0.5% 1 Gm Packet LEFT EYE 07/02/25 15:59 1 gm QID JOHNATHON Administration Gabapentin 300 mg 06/03/25 09:30 06/03/25 10:08 Gabapentin 100 Mg Capsule PO 07/03/25 09:29 300 mg DAILY JOHNATHON Administration Glucagon 1 mg 06/02/25 15:53 Glucagon Inj 1 Mg Vial IM Q15MIN PRN BG <70, and no IV access Piperacillin Sod/Tazobactam 100 mls @ 25 mls/hr 06/03/25 22:00 06/04/25 05:13 Sod 3.375 gm/ Sodium Chloride IV 06/10/25 21:59 25 mls/hr Q8HR JOHNTAHON Administration Protocol Magnesium Sulfate 4 gm in 50 mls @ 12.5 mls/hr 06/04/25 07:30 Magnesium Sulfate Ivpb IV 06/04/25 11:29 X1 ONE Insulin Degludec 13 unit 06/04/25 07:34 Insulin Degludec 5 Unit/0.05 Ml (Per 5 Units) SC 07/03/25 20:59 QDAY [facility] Insulin Human Lispro 0 unit 06/02/25 17:00 06/03/25 17:33 Insulin Lispro (Admelog) 1 Unit/0.01 Ml Unit SC 07/02/25 16:59 3 unit AC JOHNATHON Administration Protocol Lisinopril 40 mg 06/03/25 13:30 06/03/25 13:35 Lisinopril 20 Mg Tablet PO 07/03/25 13:29 40 mg QDAY JOHNATHON Administration Morphine Sulfate 2 mg 06/02/25 15:28 06/03/25 09:13 Morphine Sulf Inj 4 Mg/Ml Vial IVP 06/07/25 15:27 2 mg Q4HR PRN Administration PAIN SCALE 7-10 (Severe Pantoprazole Sodium 40 mg 06/03/25 09:00 06/03/25 08:16 Pantoprazole 40 Mg Tablet PO 07/03/25 08:59 40 mg QDAY JOHNATHON Administration Sennosides 1 tab 06/02/25 17:40 Senna/Docusate Sod 1 Tab Tablet PO 07/02/25 17:39 QDAY PRN CONSTIPATION Protocol Sumatriptan Succinate 50 mg 06/03/25 09:16 Sumatriptan 25 Mg Tablet PO 07/03/25 09:15 DAILY PRN Migraine Headache Plan Ms. Hernandez is a 60 yo woman with a hx of htn, Insulin dependent t2dm- poorly controlled a1c >15 (recently started on insulin outpatient), peripheral neuropathy, hx of unprovoked PE 4 years ago on warfarin, stress/urge uriniary incontinence (previously followed by Dr. Simpson outpatient) who presents to the ED with 3 days of dysuria and right flank pain concerning for pyelonephritis, admitted for complicated UTI with pyelonephritis and found to have pulmonary nodules, cocci serology negative, pt dysuria and flank pain resolving with zosyn changed after pt was spiking fevers while on 2 g ctx. ctm. Complicated UTI with Pyelonephritis pt had low grade fever overnight and dysuria and severe R flank pain. dysuria is improved on zosyn, so far no fever spikes while on zosyn. Dx - CTAP with Pulmonary masses in the lower lung zones, consider CT chest without intravenous contrast follow-up Moderate left renal parenchymal scar formation Bilateral renal cysts. No renal or ureteral calculi, no hydronephrosis Normal appendix. - Leukocytosis downtrending - urine cultures with NGTD Tx - Pain: apap (1-3), [place] ( 4-6 ), morpheine 2 mg IV q4hr prn (7-10) - Ceftriaxone 2 mg IV (06/02- 06/03) -pt spiking fever to 102, while on abx - Zosyn 3.375 mg IV q8hr (06/04- - IV fluids LR 85cc/hr - encourage PO intake Productive cough c/f CAP Pulmonary nodules CTAP with Pulmonary masses in the lower lung zones, consider CT chest without intravenous contrast follow-up pt has new productive cough with yellow sputum, despite ct chest without lobar pneumonia findings. - cocci serology negative - consider outpatient biopsy T2DM - poorly controlled home meds, 25 long acting qd, not taking 5 units short acting with meals 2/2 gi upset, ?Farxiga 10 mg qam. - A1c >14 - ISS - degludec 10U qhs --> 13 units qhs - carb consistent diet L preseptal cellulitis vs stye - resolving L submental lymphadenopathy EOMI, no acute vision changes on exam noted to have mobile and non tender lymph node, suspect that it is enlarged 2/2 L eye infection - CTM - erythromycin topical QID - warm compresses TID - pending US head and neck Hx of unprovoked PE - apixaban 2.5 bid - coagulation panel wnl Peripheral Neuropathy - gabapentin 2 tab qhs HTN - lisinopril 20 mg po qd HLD - atorvastatin 40 qhs Mixed Urinary Incontinence pt previously followed with Dr. Simpson has had 10 vaginal deliveries - outpatient urology follow up Dispo: on observation, on iv abx (zosyn), topicals for eye infection, symptoms are improving Diet: carb consistent Bowel Reg: senna/docusate prn VTE ppx: on apixaban 2.5 bid GI ppx: protonix 40 po qd Code status: FULL Plan discussed with Dr Sarmiento, and Dr. Moses Yanez MD PGY1
[2025-06-04] MEDS: Magnesium Sulfate 4 GM Ivpb 4 GM/50 ML BAG IV (08:04)
[2025-06-04] MEDS: INSULIN DEGLUDEC 5 UNIT/0.05 ML (PER 5 UNITS) 13 UNIT SC (08:05)
[2025-06-04] MEDS: NAPH,KPH MBDB 1 PACKET (1.5 GM) PO (08:28)
[2025-06-04] MEDS: GABAPENTIN 100 MG CAPSULE 300 MG PO (08:28)
[2025-06-04] MEDS: PANTOPRAZOLE 40 MG TABLET PO (08:28)
[2025-06-04] MEDS: APIXABAN 2.5 MG TABLET PO ×2 (08:29→21:33)
--- NOTE | 2025-06-04 08:34 | PC.NURSE ---
In patient room when dr Yanez rounded. Doctor stated patients eye looks better and asked her some general questions about pain, discomfort, coughing, and fever. Patient stated she still had some discomfort but not that bad where she needs pain meds, her cough is still productive with sputum clear in color. Doctor wants to check her urine and see if anything is growing and decide on discharge from there. Doctor stated patient might stay another day.
--- NOTE | 2025-06-04 12:54 | PC.SS ---
Rounding: On IV ABX, spiked fever, DC plan home
[2025-06-04 13:58] LABS: Cocci Serology, IgG Negative (Negative)
[2025-06-04] MEDS: ATORVASTATIN CALCIUM 20 MG TABLET 40 MG PO (21:32)
[2025-06-04] MEDS: guaiFENesin/COD SYRUP 5 ML UDC 10 ML PO (22:51)
[2025-06-05] VITALS (7 sets, daily range): BP systolic 103–133; BP diastolic 54–72; PULSE 95–101; RESP 16–18; TEMP 36.7–37.3; O2SAT 91–93
[2025-06-05] MEDS: Erythromycin Op Oint 0.5% 1 GM PACKET LEFT EYE ×2 (05:14→12:05)
[2025-06-05] MEDS: PIPER/TAZO INJ 3.375 GM in SODIUM CHLORIDE 0.9% (POP) 100 ML IV ×2 (05:15→14:13)
[2025-06-05 06:05] LABS: Basophils # (Auto) 0.0 Thou/mm3 (0.0-0.2); Basophils % (Auto) 0 % (0-2.5); Eosinophils # (Auto) 0.1 Thou/mm3 (0.0-0.5); Eosinophils % (Auto) 1 % (0-10); Hematocrit 29.1 % (36.0-46.0); Hemoglobin 9.5 g/dL (12.0-16.0); Immature Granulocytes Auto 0.04 Thou/mm3 (0.00-0.00); Lymphocytes # (Auto) 1.2 Thou/mm3 (1.0-4.8); Lymphocytes % (Auto) 13 % (10-50); Mean Corpuscular HGB Conc 32.6 g/dl (31.0-37.0); Mean Corpuscular Hemoglobin 28.7 pg (25.0-35.0); Mean Corpuscular Volume 88 fL (80-100); Monocytes # (Auto) 0.7 Thou/mm3 (0.0-0.8); Monocytes % (Auto) 8 % (0-12); Neutrophils # (Auto) 6.9 Thou/mm3 (1.8-7.7); Neutrophils % (Auto) 78 % (37-80); Nucleated Red Blood Cell # 0.00 Thou/mm3 (0.00-0.00); Nucleated Red Blood Cell % 0 /100 WBC (0); Platelet Count 242 Thou/mm3 (140-440); RDW Standard Deviation 38.5 fL (36.4-46.3); Red Blood Count 3.31 Miln/mm3 (4.00-5.20); White Blood Count 8.9 Thou/mm3 (3.6-11.0)
[2025-06-05 06:43] LABS: Alanine Aminotransferase < 7 U/L (10-49); Albumin, Serum 3.3 gm/dL (3.4-4.8); Albumin/Globulin Ratio 1.4 (1.2-2.2); Alkaline Phosphatase 61 U/L (46-116); Anion Gap 6 (7-16); Aspartate Amino Transferase < 10 U/L (0-34); BUN/Creatinine Ratio 17 Ratio (12-20); Bilirubin,Total 0.3 mg/dL (0.3-1.2); Blood Urea Nitrogen 12 mg/dL (9-23); Calcium 8.4 mg/dL (8.3-10.6); Calcium (Corrected) 9.0 mg/dL (8.5-10.1); Carbon Dioxide 26.3 mMol/L (20.0-31.0); Chloride 106 mMol/L (98-107); Creatinine (Component) 0.7 mg/dL (0.6-1.3); Estimated Creatinine Clearance 76.2 mL/min (>60); Globulin 2.4 gm/dL (2.3-3.5); Glucose 225 mg/dL (74-106); Magnesium 2.2 mg/dL (1.6-2.6); Osmolality,Calculated 282 (275-295); Phosphorous 2.2 mg/dL (2.4-5.1); Potassium 4.4 mMol/L (3.4-5.1); Sodium 138 mMol/L (136-145); Total Protein 5.7 gm/dL (5.7-8.2); eGFR > 60 See Note
[2025-06-05] MEDS: INSULIN LISPRO (AdmeLOG) 1 UNIT/0.01 ML UNIT SC ×2 (07:26→11:56)
[2025-06-05] MEDS: NAPH,KPH MBDB 1 PACKET (1.5 GM) 2 PACKET PO (08:29)
[2025-06-05] MEDS: GABAPENTIN 100 MG CAPSULE 300 MG PO (08:29)
[2025-06-05] MEDS: APIXABAN 2.5 MG TABLET PO (08:30)
[2025-06-05] MEDS: PANTOPRAZOLE 40 MG TABLET PO (08:30)
--- NOTE | 2025-06-05 09:55 | ESDS_ITS ---
<Statement entered by Ida Lopes MD - 06/08/25 17:40> I reviewed above note and agree with findings and plans. I have also personally examined the patient with medicine team and went over assessment and plan with medical team including procurement internship and resident physician. <Statement entered by Tootie Patel MD - 06/05/25 20:30> Note reviewed, I agree with most of its contents and agree with the patient's care as documented by Dr. Yanez. The patient's management plan was discussed with my attending physician Dr. Lopes. Tootie Patel, PGY-2 Planned Discharge Date 06/05/25 DS: Providers Provider Date of admission: 06/04/25 14:12 Primary care physician: Fadumo Baumann PA-C Admitting Provider: Ida Lopes MD Attending Provider on Admission: Ida Lopes MD Attending Provider on DC: Ida Lopes MD Discharging Provider: Ida Lopes MD DS: Diagnosis Problem List Completed Was Problem List Reviewed/Reconciled?: Yes Hospital Course Hospital Course Hospital course: Hospital Course Ms. Hernandez is a 60 yo woman with a hx of htn, T2DM (not on insulin), peripheral neuropathy, hx of unprovoked PE 4 years ago on apixaban 2.5mg BID, stress/urge uriniary incontinence (previously followed by Dr. Simpson outpatient) who presents to the ED with 3 days of dysuria and right flank pain concerning for pyelonephritis, admitted for complicated UTI with pyelonephritis. Despite UA bland and imaging unremarkable pt symptoms were suggestive of R pyelonephritis. her symptoms improved with IV antibiotics. She also had preseptal cellulitis that resolved while on erythromycin topical qid, and warm compresses. Patient stable and medically cleared for discharge. Discharge instructions Held Dapagliflozin given history of UTI. This can increase your risk of infection. Resume after you see your PCP. Please take Lantus (long-acting insulin) 18 units daily and 3 units of Lispro (short-acting insulin) daily with meals. If you notice your fasting blood glucose is above 150 in the morning, please increase your long-acting by 1 unit. Your goal fasting blood glucose is 70-130. Please see your PCP for adjustment of regimen. Continue taking antibiotics as prescribed for UTI. Recommend repeat chest imaging in another 6 months to monitor pulmonary nodules. Diagnoses Complicated UTI with Pyelonephritis Pulmonary nodules T2DM - poorly controlled L preseptal cellulitis vs stye - resolving L submental lymphadenopathy resolving Hx of unprovoked PE Peripheral Neuropathy HTN HLD Mixed Urinary Incontinence Plan discussed with Dr. Patel, and Dr. Moses Yanez MD PGY1 Time Spent with Patient Time attestation: Total time spent providing and/or coordinating discharge services: Time spent: Greater than 30 minutes Exam Vital Signs Temp Pulse Resp BP Pulse Ox O2 Del Method 99.1 F 95 17 124/72 91 L Room Air 06/05/25 07:00 06/05/25 08:30 06/05/25 07:32 06/05/25 08:30 06/05/25 07:32 06/05/25 07:32 Narrative Exam GENERAL: mild distress 2/2 pain, AAO x3, laying slightly on the left side. HEENT: Head AT/ NC. Mucous membranes moist. PERRL. , EOMI, L eye much improved, decreased errythema and swelling NECK: Supple, Left submental lymphadenopathy decresed in size, mobile and nontender to palpation., no carotid bruits. CARDIOVASCULAR: sinus tachycardia. Normal S1/S2, No m/r/g. No pitting edema of bilateral LEs. RESPIRATORY: Lungs CTAB intermittent productive cough, with yellow sputum noted. GASTROINTESTINAL: Abdomen soft, c/o epigastric tenderness no palpable masses. Bowel sounds present R CVA is Nontender to palpation, no suprapubic tenderness. no rebound no guarding . MUSCULOSKELETAL:? No cyanosis or edema, no visible joint swelling. NEUROLOGICAL: CN II-XII grossly intact. No focal deficits. Sensation intact, symmetric. PSYCHIATRIC: Awake and alert, not agitated, normal mood and affect. SKIN: No obvious rashes, no jaundice, normal turgor. Discharge Plan Plan Patient Disposition: HOME (Self Care) Patient condition on transfer: Stable Prescriptions/Referrals Prescriptions/Med Rec: New insulin glargine [Lantus Solostar U-100 Insulin] 100 unit/mL (3 mL) insulin pen 18 unit subcut QPM 30 Days Qty: 5.4 0RF (DME) blood-glucose meter Kit See Rx Instructions .Route Qty: 1 0RF Rx Instructions: As directed (DME) pen needle, diabetic 29 gauge x 1/2 needle See Rx Instructions .Route Qty: 100 0RF Rx Instructions: As directed insulin lispro 100 unit/mL insulin pen 3 unit subcut TID 30 Days Qty: 2.7 0RF levofloxacin 750 mg tablet 750 mg PO QDAY Qty: 5 0RF Continued lisinopril 20 MG tablet 40 mg PO QDAY Qty: 0 metformin 1,000 mg Tablet 1,000 mg PO BID Qty: 60 gabapentin 100 mg Capsule 300 mg PO DAILY sumatriptan succinate 50 mg tablet 50 mg PO DAILY PRN (Reason: migraine headache) Rx Instructions: May repeat in 2 hours atorvastatin 40 mg tablet 40 mg PO QDAY Eliquis 2.5 mg tablet 2.5 mg PO BID Held dapagliflozin propanediol [Farxiga] 10 mg tablet 10 mg PO QAM Hold Instructions: Resume on 06/20/25. Hold until you follow up with PCP. Discontinued Insulin Aspart 5 unit subcut AC Rx Instructions: Take 5-8 units insulin glargine [Basaglar KwikPen U-100 Insulin] 100 unit/mL (3 mL) insulin pen 25 unit subcut QDAY Referrals: Fadumo Baumann PA-C [Primary Care Provider, Family Practice] Patient/Caregiver Discharge Instructions Other Discharge Activity Instructions:: Held Dapagliflozin given history of UTI. This can increase your risk of infection. Resume after you see your PCP. Please take Lantus (long-acting insulin) 18 units daily and 3 units of Lispro (short-acting insulin) daily with meals. If you notice your fasting blood glucose is above 150 in the morning, please increase your long-acting by 1 unit. Your goal fasting blood glucose is 70-130. Please see your PCP for adjustment of regimen. Continue taking antibiotics as prescribed for UTI. Recommend repeat chest imaging in another 6 months to monitor pulmonary nodules. Education Materials: Urinary Tract Infections in Women Print Language: Kinyarwanda Stand Alone Forms: [employer] Award Info., Patient Portal Info Letter Discharge Order Discharge Orders: Discharge (Routine); Ordered 06/05/25 Ordered By: Tootie Patel Quality Discharge Quality Measures VTE prophylaxis
[2025-06-05 11:59] LABS: Basophils # (Auto) 0.0 Thou/mm3 (0.0-0.2); Basophils % (Auto) 0 % (0-2.5); Eosinophils # (Auto) 0.1 Thou/mm3 (0.0-0.5); Eosinophils % (Auto) 1 % (0-10); Hematocrit 29.9 % (36.0-46.0); Hemoglobin 10.0 g/dL (12.0-16.0); Immature Granulocytes Auto 0.07 Thou/mm3 (0.00-0.00); Lymphocytes # (Auto) 1.1 Thou/mm3 (1.0-4.8); Lymphocytes % (Auto) 10 % (10-50); Mean Corpuscular HGB Conc 33.4 g/dl (31.0-37.0); Mean Corpuscular Hemoglobin 29.6 pg (25.0-35.0); Mean Corpuscular Volume 89 fL (80-100); Monocytes # (Auto) 0.7 Thou/mm3 (0.0-0.8); Monocytes % (Auto) 6 % (0-12); Neutrophils # (Auto) 8.8 Thou/mm3 (1.8-7.7); Neutrophils % (Auto) 82 % (37-80); Nucleated Red Blood Cell # 0.00 Thou/mm3 (0.00-0.00); Nucleated Red Blood Cell % 0 /100 WBC (0); Platelet Count 275 Thou/mm3 (140-440); RDW Standard Deviation 39.0 fL (36.4-46.3); Red Blood Count 3.38 Miln/mm3 (4.00-5.20); White Blood Count 10.8 Thou/mm3 (3.6-11.0)
== END 2025-06-05 16:20 | disposition home or self-care (01) | DRG 690 ==
LOC: SERX 15:31 → SERHOLD 16:02 → S3SX 17:38 → SERHOLD 06-05 06:28
PROVIDERS: Nurse Practitioner Family; Admitting Provider Internal Medicine; Emergency Provider Family Medicine; PCP Physician Assistant; Visit Provider Internal Medicine
DX: N12 Tubulo-interstitial nephritis, not specified as acute or chronic (principal); L03.213 Periorbital cellulitis; I10 Essential (primary) hypertension; E11.42 Type 2 diabetes mellitus with diabetic polyneuropathy; R91.8 Other nonspecific abnormal finding of lung field; N39.46 Mixed incontinence; E11.65 Type 2 diabetes mellitus with hyperglycemia; E78.5 Hyperlipidemia, unspecified; R59.1 Generalized enlarged lymph nodes; H00.019 Hordeolum externum unspecified eye, unspecified eyelid; Z86.711 Personal history of pulmonary embolism; Z79.01 Long term (current) use of anticoagulants; Z79.4 Long term (current) use of insulin; Z79.84 Long term (current) use of oral hypoglycemic drugs; Z86.73 Personal history of transient ischemic attack (TIA), and cerebral infarction without residual deficits
CPT/HCPCS: 36415; 71101; 71250; 74176; 76536; 80053; 81001; 82150; 83036; 83735; 84100; 85025; 85610; 86331; 86635; 87040; 87081; 87086; 87400; 87811; 93005; 96361; 96374; 96375; 96376; 99285; A4649; G0378; J0696; J1815; J1885; J2270; J2405; J2543; J3475; J7030; J7050; J7120; A9270